=== PATIENT | male | born 1965 | race Caucasian/White ===

== ENCOUNTER 2024-07-08 23:39 | Emergency (ER) | payer BC ==
[~2024-07-08] VITALS: Ht 175.3 cm; Wt 99.4 kg
[2024-07-09 00:09] VITALS: BP 168/109; RESP 15; TEMP 98.6; O2SAT 98
[2024-07-09 00:16] VITALS: PULSE 71; O2SAT 100
[2024-07-09 01:56] LABS: BASOPHILS % 0.5 % (0.0-2.0); EOSINOPHILS % 1.4 % (0.0-5.0); HEMATOCRIT. 42.5 % (42.0-52.0); LYMPHOCYTES % 36.8 % (20.0-50.0); MEAN CORPUSCULAR HEMOGLOBIN 31.9 pg (28.0-32.0); MEAN CORPUSCULAR HGB CONC 35.2 g/dL (31.0-37.0); MEAN CORPUSCULAR VOLUME 90.4 fL (80.0-94.0); MEAN PLATELET VOLUME 8.8 fl (7.4-10.4); MONOCYTES % 7.2 % (2.0-8.0); NEUTROPHILS % 54.1 % (40.0-76.0); PLATELET 226 x1000/uL (130-400); RED CELL DISTRIBUTION WIDTH 12.9 % (11.6-14.6); WHITE BLOOD COUNT 5.5 x1000/uL (4.5-11.0)
[2024-07-09 02:02] LABS: CHLORIDE 106 mEq/L (98-107); SODIUM 139 mEq/L (136-145)
[2024-07-09 02:03] LABS: CALCIUM 9.7 mg/dL (8.7-10.4); CARBON DIOXIDE 27 mEq/L (21-32)
[2024-07-09 02:08] LABS: CREATININE 1.1 mg/dL (0.6-1.3); UREA NITROGEN BLOOD 16 mg/dL (9-23)
[2024-07-09 02:33] LABS: TROPONIN I HIGH SENSITIVITY < 4 ng/L (3.0-53)
[2024-07-09 02:35] LABS: GLUCOSE 96 mg/dL (70-105)
[2024-07-09] MEDS ORDERED: ASPI-1497 MT (02:43)
[2024-07-09] MEDS: ASPIRIN 81MG TABLET PO ONE (02:45)
== END 2024-07-09 03:22 | disposition home or self-care (01) ==
LOC: ER 23:39
DX: R07.89 Other chest pain (principal); E78.00 Pure hypercholesterolemia, unspecified; I10 Essential (primary) hypertension; Z98.890 Other specified postprocedural states
CPT/HCPCS: 36415; 71045; 80048; 83880; 84484; 85025; 93005; 99285